=== PATIENT | male | born 2000 | race Caucasian/White ===

== ENCOUNTER 2019-04-05 01:04 | Emergency (ER) | payer OTHER ==
[2019-04-05] MEDS ORDERED: Lidocaine 1% w/Epinephrine 1:100K 20 ML VIAL ONE (01:52)
[2019-04-05] MEDS ORDERED: Lidocaine 1% (PF) 30 ML VIAL ONE (01:54)
== END 2019-04-05 02:33 | disposition home or self-care (01) ==
LOC: ERS 01:04
DX: S61.213A Laceration without foreign body of left middle finger without damage to nail, initial encounter (principal); W26.0XXA Contact with knife, initial encounter
CPT/HCPCS: 12001; J2001